=== PATIENT | female | born 1945 | race African-American/Black ===

== ENCOUNTER → 2023-08-26 | Day surgery (SDC) | payer MEDICARE ==
[~2023-08-26] VITALS: Ht 170.2 cm; Wt 90.7 kg
[~2023-08-26] MED LIST: ASPI-1497 PO; BALANCED SALT IRRIG SOLN 15ML ONE; BALANCED SALT IRRIG SOLN COMB1 500ML OP SCH; BIMA2.5D4 EACHEYE; CHOL10CA2 PO; CYCLOPENTOLATE HCL 1% OPHTH DROPS 2ML LEFTEYE ONE; DORZ10DR9 EACHEYE; FELO10TA45 PO; FENTANYL CITRATE/PF 50MCG/ML 2ML VIAL ONE; FURO-152 PO; HYALURONATE SODIUM 10 MG/ML 0.55ML SYRINGE IO ONE; INSU100I33 SQ; LIDOCAINE HCL 1% 20ML VIAL (Pyxis) INJ ONE; METF-416 PO; METO-396 PO; MIDAZOLAM HCL 2 MG/2 ML VIAL ONE; MULT-1116 PO; PHENYLEPHRINE HCL 10% OPHTH DROPS 5ML LEFTEYE ONE; POTA-354 PO; PROPOFOL 200MG/20ML VIAL IV ONE; TROPICAMIDE 1% OPHTH DROPS 15ML LEFTEYE ONE; TRYPAN BLUE 0.5 ML DISP.SYRIN IO ONE; VALS320T16 PO; VITA1TAB20 PO; VITA400T9 PO
[2023-08-26 07:01] LABS: CALCIUM 9.3 mg/dL (8.7-10.4)
[2023-08-26 07:06] LABS: CREATININE 1.3 mg/dL (0.6-1.0)
[2023-08-26] MEDS: SODIUM CHLORIDE 0.9% 1,000 ML IV SCH (07:56)
== END | disposition home or self-care (01) ==
LOC: OR 06:25
PROVIDERS: ATTEND Ophthalmology
DX: E11.36 Type 2 diabetes mellitus with diabetic cataract (principal); H25.89 Other age-related cataract; E11.51 Type 2 diabetes mellitus with diabetic peripheral angiopathy without gangrene; I10 Essential (primary) hypertension; Z79.82 Long term (current) use of aspirin; Z79.84 Long term (current) use of oral hypoglycemic drugs; Z79.899 Other long term (current) drug therapy; Z98.890 Other specified postprocedural states
CPT/HCPCS: 66982; 80048; 36415; J3010; J3490 ×5; J2250; J2704; V2632; Q9957